=== PATIENT | female | born 1955 | race Caucasian/White ===

== ENCOUNTER 2018-12-10 16:45 | Emergency (ER) | payer OTHER ==
[~2018-12-10] VITALS: Ht 162.6 cm; Wt 115.5 kg
[2018-12-10 16:58] VITALS: BP 177/77
--- NOTE | 2018-12-10 19:08 | NUR ---
tech at bed to perform vasc study
== END 2018-12-10 19:48 | disposition home or self-care (01) ==
LOC: ER 16:46
DX: M79.652 Pain in left thigh (principal); R59.0 Localized enlarged lymph nodes; I10 Essential (primary) hypertension; E11.9 Type 2 diabetes mellitus without complications; Z88.6 Allergy status to analgesic agent; Z88.2 Allergy status to sulfonamides; Z88.5 Allergy status to narcotic agent
CPT/HCPCS: 93971; 99284

== ENCOUNTER 2021-04-17 19:25 | Emergency (ER) | payer OTHER, MEDICARE ==
[~2021-04-17] VITALS: Ht 160 cm; Wt 120.5 kg
[2021-04-17] MEDS ORDERED: aspirin 81mg tab.chew PO ONE (19:35)
[2021-04-17 20:42] LABS: BASOPHILS # (AUTO) 0.1 X10'3 (0-0.2); BASOPHILS % (AUTO) 0.7 % (0-1); EOSINOPHILS # (AUTO) 0.1 X10'3 (0-0.9); EOSINOPHILS % (AUTO) 0.8 % (0-6); HEMATOCRIT 40.3 % (35.0-45.0); HEMOGLOBIN 13.7 g/dl (12.0-16.0); LYMPHOCYTES % (AUTO) 24.6 % (21-51); MEAN CORPUSCULAR HEMOGLOBIN 32.2 PG (27.0-31.0); MEAN CORPUSCULAR HGB CONC 33.9 g/dL (33.0-36.5); MEAN CORPUSCULAR VOLUME 95.1 FL (78-98); MEAN PLATELET VOLUME 9.5 FL (7.4-10.4); MONOCYTES # (AUTO) 0.5 X10'3 (0-0.9); MONOCYTES % (AUTO) 6.6 % (2-12); NEUTROPHILS # (AUTO) 5.5 X10'3 (1.8-7.7); NEUTROPHILS % (AUTO) 67.3 % (42-75); PLATELET COUNT 207 X10'3 (140-440); RED BLOOD COUNT 4.24 X10'6 (4.20-5.60); RED CELL DISTRIBUTION WIDTH 13.2 % (11.5-14.5); WHITE BLOOD COUNT 8.1 X10'3 (4.5-11.0)
[2021-04-17 20:57] LABS: ALANINE AMINOTRANSFERASE 30 U/L (12-78); ALBUMIN 3.4 G/DL (3.4-5.0); ALBUMIN/GLOBULIN RATIO 0.9 (1.1-1.5); ALKALINE PHOSPHATASE 110 IU/L (46-116); ANION GAP 6 (8-16); ASPARTATE AMINO TRANSFERASE 9 U/L (10-37); BILIRUBIN,TOTAL 0.2 MG/DL (0.1-1.0); BLOOD UREA NITROGEN 23 MG/DL (7-18); BUN/CREATININE RATIO 22.5 (6.6-38.0); CALCIUM 8.6 MG/DL (8.5-10.1); CHLORIDE 109 MMOL/L (99-107); CREATININE 1.02 MG/DL (0.40-0.90); GLUCOSE 134 MG/DL (70-104); POTASSIUM 4.2 MMOL/L (3.5-5.1); SODIUM 144 MMOL/L (135-145); TOTAL CARBON DIOXIDE 29.5 MMOL/L (24-32); TOTAL PROTEIN 7.4 G/DL (6.4-8.2); eGFR 54 ML/MIN
[2021-04-17] MEDS ORDERED: ondansetron 4mg rapidly disintigrating tab PO ONE (21:45)
[2021-04-17 23:39] VITALS: BP 155/77
== END 2021-04-17 23:40 | disposition home or self-care (01) ==
LOC: ER 19:26
DX: M25.512 Pain in left shoulder (principal); R11.0 Nausea; R10.10 Upper abdominal pain, unspecified; R10.13 Epigastric pain; E11.9 Type 2 diabetes mellitus without complications; I10 Essential (primary) hypertension; E07.9 Disorder of thyroid, unspecified; Z79.4 Long term (current) use of insulin; Z88.2 Allergy status to sulfonamides; Z88.8 Allergy status to other drugs, medicaments and biological substances; Z90.710 Acquired absence of both cervix and uterus; Z86.16 Personal history of COVID-19
CPT/HCPCS: 36415; 71045; 73030; 74176; 80053; 83735; 83880; 84484; 85025; 93005; 99285

== ENCOUNTER 2021-10-25 21:12 | Emergency (ER) | payer OTHER, MEDICARE ==
[~2021-10-25] VITALS: Ht 160 cm; Wt 118.0 kg
[2021-10-25 21:18] VITALS: BP 146/72
[2021-10-25 21:59] LABS: BASOPHILS # (AUTO) 0.1 X10'3 (0-0.2); BASOPHILS % (AUTO) 0.9 % (0-1); EOSINOPHILS # (AUTO) 0.1 X10'3 (0-0.9); EOSINOPHILS % (AUTO) 1.4 % (0-6); HEMATOCRIT 39.3 % (35.0-45.0); HEMOGLOBIN 13.4 g/dl (12.0-16.0); LYMPHOCYTES # (AUTO) 2.1 X10'3 (1.1-4.8); LYMPHOCYTES % (AUTO) 29.2 % (21-51); MEAN CORPUSCULAR HEMOGLOBIN 31.8 PG (27.0-31.0); MEAN CORPUSCULAR VOLUME 93.6 FL (78-98); MEAN PLATELET VOLUME 9.5 FL (7.4-10.4); MONOCYTES # (AUTO) 0.4 X10'3 (0-0.9); MONOCYTES % (AUTO) 6.2 % (2-12); NEUTROPHILS # (AUTO) 4.5 X10'3 (1.8-7.7); NEUTROPHILS % (AUTO) 62.3 % (42-75); PLATELET COUNT 201 X10'3 (140-440); RED CELL DISTRIBUTION WIDTH 12.9 % (11.5-14.5); WHITE BLOOD COUNT 7.2 X10'3 (4.5-11.0)
[2021-10-25 22:12] LABS: CHLORIDE 105 MMOL/L (99-107); GLUCOSE 154 MG/DL (70-104); POTASSIUM 3.9 MMOL/L (3.5-5.1); SODIUM 140 MMOL/L (135-145); TOTAL CARBON DIOXIDE 26.7 MMOL/L (24-32)
[2021-10-25 22:13] LABS: ALANINE AMINOTRANSFERASE 34 U/L (12-78); ALBUMIN 3.1 G/DL (3.4-5.0); ALBUMIN/GLOBULIN RATIO 0.8 (1.1-1.5); ALKALINE PHOSPHATASE 89 IU/L (46-116); ANION GAP 8 (8-16); ASPARTATE AMINO TRANSFERASE 19 U/L (10-37); BILIRUBIN,TOTAL 0.3 MG/DL (0.1-1.0); BLOOD UREA NITROGEN 24 MG/DL (7-18); CALCIUM 8.7 MG/DL (8.5-10.1); TOTAL PROTEIN 6.9 G/DL (6.4-8.2); eGFR 55 ML/MIN
[2021-10-26] MEDS ORDERED: LIDOcaine Viscous 15ml cup MM ONE (01:00)
[2021-10-26] MEDS ORDERED: mag hydrox/Alum hydrox/simeth 30ml oral suspension PO ONE (01:00)
[2021-10-26] MEDS ORDERED: LORazepam 2 mg/ml vial IM ONE (01:00)
[2021-10-26] MEDS ORDERED: iohexol 350MG/ML 100ml bottle IV ONE (02:43)
[2021-10-26] MEDS ORDERED: SUCR1TAB PO (05:31)
== END 2021-10-26 07:30 | disposition home or self-care (01) ==
LOC: ER 21:12
DX: K22.4 Dyskinesia of esophagus (principal); R07.0 Pain in throat; I10 Essential (primary) hypertension; E11.9 Type 2 diabetes mellitus without complications; Z88.2 Allergy status to sulfonamides; Z79.899 Other long term (current) drug therapy; Z88.5 Allergy status to narcotic agent; Z88.6 Allergy status to analgesic agent
CPT/HCPCS: 36415; 71045; 71275; 80053; 83880; 84484; 85025; 93005; 96372; 99285; J2060; Q9967

== ENCOUNTER 2024-03-01 20:21 | Emergency (ER) | payer OTHER, MEDICARE ==
[~2024-03-01] VITALS: Ht 160 cm; Wt 100.0 kg
[~2024-03-01 20:21] MED LIST: SUCR1TAB PO
[2024-03-01 20:40] VITALS: TEMP 98.2
[2024-03-01] MEDS ORDERED: ketorolac trometh inj. 60 MG/2 ML VIAL IM ONE (21:15)
[2024-03-01] MEDS: ketorolac tromethamine 15mg/ml inj. IM ONE (21:24)
[2024-03-01 22:11] VITALS: BP 154/90; PULSE 69; RESP 16; O2SAT 95
== END 2024-03-01 22:17 | disposition home or self-care (01) ==
LOC: ER 20:22
DX: M25.512 Pain in left shoulder (principal); I10 Essential (primary) hypertension; E11.9 Type 2 diabetes mellitus without complications; Z88.2 Allergy status to sulfonamides; Z88.8 Allergy status to other drugs, medicaments and biological substances; Z90.710 Acquired absence of both cervix and uterus; I51.7 Cardiomegaly
CPT/HCPCS: 73030; 93005; 96372; 99283; J1885

== ENCOUNTER 2024-12-22 19:23 | Emergency (ER) | payer OTHER, MEDICARE ==
[~2024-12-22] VITALS: Ht 162.6 cm; Wt 102.3 kg
[2024-12-22] MEDS ORDERED: INDO-12 PO (21:10)
[2024-12-22] MEDS: indomethacin 25mg capsule PO STA (21:21)
[2024-12-22 21:48] VITALS: BP 169/90; PULSE 80; RESP 18; TEMP 98.7; O2SAT 97
== END 2024-12-22 21:49 | disposition home or self-care (01) ==
LOC: ER 19:24
DX: M25.531 Pain in right wrist (principal); I10 Essential (primary) hypertension; E11.9 Type 2 diabetes mellitus without complications; E07.9 Disorder of thyroid, unspecified; Z88.2 Allergy status to sulfonamides; Z88.5 Allergy status to narcotic agent; Z79.899 Other long term (current) drug therapy; Z90.710 Acquired absence of both cervix and uterus
CPT/HCPCS: 73110; 73130; 99284